=== PATIENT | female | born 1960 | race Caucasian/White ===

== ENCOUNTER → 2017-03-22 | Outpatient (CLI) | payer OTHER ==
[2017-03-22 11:03] VITALS: BMI 48.6
== END | disposition home or self-care (01) ==
LOC: MNTWWP 09:30
PROVIDERS: ATTEND Family Medicine
DX: Z71.3 Dietary counseling and surveillance (principal); E66.9 Obesity, unspecified; Z68.42 Body mass index [BMI] 45.0-49.9, adult

== ENCOUNTER → 2022-04-02 | Outpatient (CLI) | payer SELFPAY ==
[~2022-04-02] MED LIST: BEBTELOVIMAB (EUA) 175 MG/2 ML VIAL IV NR; SODIUM CHLORIDE 0.9% 500 ML 500 ML in EMPTY BAG 1 BAG IV PRN
[2022-04-02 12:24] VITALS: RESP 18; TEMP 97.4
[2022-04-02 13:12] VITALS: BP 127/76; PULSE 56
== END ==
LOC: PROCWHC3 11:54
PROVIDERS: ATTEND Physician Assistant
DX: U07.1 COVID-19 (principal); E66.9 Obesity, unspecified; Z88.2 Allergy status to sulfonamides; Z68.42 Body mass index [BMI] 45.0-49.9, adult
CPT/HCPCS: 96374; Q0222; M0222